=== PATIENT | male | born 1965 | race Caucasian/White ===

== ENCOUNTER 2019-11-05 17:51 | Emergency (ER) | payer MEDICAID ==
[~2019-11-05] VITALS: Ht 172.7 cm; Wt 79.5 kg
[~2019-11-05 17:51] MED LIST: LIDOcaine 1% W/epiNEPHrine 1:100,000 20ml vial ONE
[2019-11-05] MEDS ORDERED: DOXY100C76 PO (19:18)
[2019-11-05 19:25] VITALS: BP 148/101
== END 2019-11-05 19:26 | disposition home or self-care (01) ==
LOC: ER 17:52
DX: L02.411 Cutaneous abscess of right axilla (principal); I10 Essential (primary) hypertension; G89.29 Other chronic pain
CPT/HCPCS: 10060; 99284